=== PATIENT | male | born 1950 | race Caucasian/White ===

== ENCOUNTER 2017-06-25 19:31 | Inpatient (IN) | payer OTHER ==
[~2017-06-25] VITALS: Ht 172.7 cm; Wt 76.5 kg
[2017-06-25] MEDS ORDERED: AMAN100C12 PO (19:44)
[2017-06-25] MEDS ORDERED: GABA-531 PO ×2 (19:44)
[2017-06-25] MEDS ORDERED: SIMV-260 PO (19:44)
[2017-06-25] MEDS ORDERED: DOCU250C91 PO (19:44)
[2017-06-25] MEDS ORDERED: SENN-34 PO (19:44)
[2017-06-25] MEDS ORDERED: ACET325C PO (19:44)
[2017-06-25] MEDS ORDERED: CARB1TAB41 PO (19:44)
[2017-06-25] MEDS ORDERED: FLUO-191 PO (19:44)
[2017-06-25] MEDS ORDERED: OXYC10 PO (19:44)
[2017-06-25] MEDS ORDERED: CHOL200016 PO (19:44)
[2017-06-25] MEDS ORDERED: METF500T7 PO (19:44)
[2017-06-25] MEDS ORDERED: MULT-685 PO (19:44)
[2017-06-25] MEDS ORDERED: ACETAMINOPHEN 500 MG TABLET PO ONE (20:15)
[2017-06-25] MEDS ORDERED: SODIUM CHLORIDE 0.9% 2,000 ML IV ONE (20:15)
[2017-06-25 20:24] LABS: HEMATOCRIT 40.5 % (41-53); HEMOGLOBIN 13.8 g/dL (13.5-17.5); MEAN CORPUSCULAR HEMOGLOBIN 32.3 pg (26.0-34.0); MEAN CORPUSCULAR HGB CONC 34.1 G/dL (31.0-37.0); MEAN CORPUSCULAR VOLUME 95 fL (80-100); PLATELET COUNT (AUTO) 162 K/uL (150-450); RED BLOOD CELL COUNT(AUTO) 4.28 MIL/uL (4.50-5.90); RED CELL DISTRIBUTION WIDTH 13.7 % (11.5-14.5); WHITE BLOOD COUNT (AUTO) 20.4 K/uL (4.5-11.0)
[2017-06-25 20:35] LABS: ANION GAP 9 mmol/L (8-16); CALCIUM, TOTAL 8.7 mg/dL (8.8-10.5); CARBON DIOXIDE 26 mmol/L (22-29); CHLORIDE 100 mmol/L (98-107); CREATININE 1.22 mg/dL (0.60-1.30); GLOMERULAR FILTR. RATE CALC 59 mL/min (>60); POTASSIUM 3.9 mmol/L (3.5-5.1); SODIUM SERUM 135 mmol/L (136-145); UREA NITROGEN, BLOOD 18 mg/dL (7-18)
[2017-06-25 20:41] LABS: ALANINE AMINOTRANSFERASE 35 U/L (12-78); ALBUMIN 2.8 g/dL (3.4-5.0); ASPARTATE AMINOTRANSFERASE 19 U/L (15-37); BILIRUBIN,TOTAL 0.9 mg/dL (0.1-1.0); TOTAL PROTEIN, SERUM 5.9 g/dL (6.4-8.2)
[2017-06-25 20:52] LABS: B-TYPE NATRIURETIC PEPTIDE 6 pg/mL (0-100)
[2017-06-25 21:07] LABS: LACTIC ACID 2.1 mmol/L (0.4-2.0)
[2017-06-25 21:09] LABS: BAND NEUTROPHILS % (MANUAL) 15 % (1-5); BASOPHILS % (MANUAL) 1 % (0-2); LYMPHOCYTES % (MANUAL) 8 % (22-44); METAMYELOCYTES % 1 % (0-0); TOTAL CELLS COUNTED 100
[2017-06-25 21:10] LABS: RBC MORPHOLOGY COMMENT NORMAL RBC MORPH
[2017-06-25] MEDS ORDERED: ACETAMINOPHEN 325 MG TABLET PO PRN (21:30)
[2017-06-25] MEDS ORDERED: OxyCODONE HCL/ACETAMINOPHEN 5-325 MG TABLET PO PRN (21:30)
[2017-06-25] MEDS ORDERED: POTASSIUM CHLORIDE 20 MEQ ER TABLET PO PRN (21:45)
[2017-06-25] MEDS ORDERED: DEXTROSE 50%-WATER 25 GM/50 ML SYRINGE IVP PRN (21:45)
[2017-06-25] MEDS ORDERED: SODIUM CHLORIDE 0.9% 1,000 ML IV ONE (21:45)
[2017-06-25 21:47] LABS: PROCALCITONIN (PCT) 0.33 ng/mL (<0.50)
[2017-06-25 22:12] LABS: REFLEX LACTIC ACID? YES YES
[2017-06-25] MEDS: CIPROFLOXACIN 400 MG/D5% WATER 200 ML IV SCH (22:39)
[2017-06-25 22:55] VITALS: BP 133/66
[2017-06-25] MEDS ORDERED: MetroNIDAZOLE 500 MG/NACL 100 ML IV SCH (23:00)
[2017-06-26] MEDS: HEPARIN SODIUM,PORCINE 5,000 UNITS/ML VIAL SQ SCH ×5 (00:38→23:30)
[2017-06-26 04:13] VITALS: BP 134/70
[2017-06-26 04:29] LABS: APPEARANCE,URINE CLEAR (CLEAR); GLUCOSE, URINE (UA) 100 mg/dL (NEGATIVE); KETONES,URINE 15 mg/dL (NEGATIVE); LEUKOCYTE ESTERASE ,URINE NEGATIVE (NEGATIVE); OCCULT BLOOD,URINE NEGATIVE (NEGATIVE); PROTEIN,URINE NEGATIVE (NEGATIVE)
[2017-06-26 04:39] LABS: RBC,URINE None Seen /HPF (0-2); WBC,URINE 0-2 /HPF (0-5)
[2017-06-26] MEDS: INSULIN ASPART 100 UNITS/ML SQ PRN ×2 (06:08→20:17)
[2017-06-26 06:40] LABS: HEMATOCRIT 38.1 % (41-53); HEMOGLOBIN 12.8 g/dL (13.5-17.5); MEAN CORPUSCULAR HEMOGLOBIN 32.6 pg (26.0-34.0); MEAN CORPUSCULAR HGB CONC 33.7 G/dL (31.0-37.0); MEAN CORPUSCULAR VOLUME 97 fL (80-100); PLATELET COUNT (AUTO) 145 K/uL (150-450); RED BLOOD CELL COUNT(AUTO) 3.94 MIL/uL (4.50-5.90); RED CELL DISTRIBUTION WIDTH 13.5 % (11.5-14.5); WHITE BLOOD COUNT (AUTO) 20.2 K/uL (4.5-11.0)
[2017-06-26 07:03] LABS: CHLORIDE 103 mmol/L (98-107); POTASSIUM 3.6 mmol/L (3.5-5.1); UREA NITROGEN, BLOOD 12 mg/dL (7-18)
[2017-06-26 07:33] VITALS: BP 136/72
[2017-06-26] MEDS ORDERED: MetroNIDAZOLE 500 MG/NACL 100 ML IV SCH (08:00)
[2017-06-26] MEDS ORDERED: MetroNIDAZOLE 500 MG TABLET PO SCH (08:15)
[2017-06-26] MEDS: PANTOPRAZOLE SODIUM 40 MG DR TABLET PO SCH (08:56)
[2017-06-26] MEDS: CIPROFLOXACIN 400 MG/D5% WATER 200 ML IV SCH (09:02)
[2017-06-26 09:46] LABS: ANION GAP 14 mmol/L (8-16); CALCIUM, TOTAL 7.9 mg/dL (8.8-10.5); CARBON DIOXIDE 21 mmol/L (22-29); CREATININE 1.04 mg/dL (0.60-1.30); SODIUM SERUM 138 mmol/L (136-145)
[2017-06-26 09:48] LABS: GLOMERULAR FILTR. RATE CALC > 60 mL/min (>60)
[2017-06-26 09:57] LABS: BAND NEUTROPHILS % (MANUAL) 13 % (1-5); BASOPHILS % (MANUAL) 1 % (0-2); LYMPHOCYTES % (MANUAL) 4 % (22-44); TOTAL CELLS COUNTED 100
[2017-06-26] MEDS: CARBIDOPA/LEVODOPA 25-100 MG TABLET PO SCH ×4 (10:25→20:17)
[2017-06-26 11:16] VITALS: BP 115/61
[2017-06-26] MEDS: VANCOMYCIN HCL 250 MG/5 ML SOLUTION ORAL.SYG PO SCH ×3 (14:01→20:17)
[2017-06-26 14:55] VITALS: BP 117/62
[2017-06-26 19:56] VITALS: BP 114/65
[2017-06-26] MEDS ORDERED: SODIUM CHLORIDE 0.9% 100 ML ONE (21:25)
[2017-06-26] MEDS: POTASSIUM CHL 10 MEQ/WATER 50 ML IV PRN (21:31)
[2017-06-26 23:35] VITALS: BP 134/86
[2017-06-27] MEDS: POTASSIUM CHL 10 MEQ/WATER 50 ML IV PRN ×2 (00:44→02:49)
[2017-06-27 05:22] VITALS: BP 146/81
[2017-06-27] MEDS: INSULIN ASPART 100 UNITS/ML SQ PRN ×2 (06:23→20:48)
[2017-06-27 06:50] LABS: EOSINOPHILS % (AUTO) 0.6 % (1.0-6.0); HEMATOCRIT 37.8 % (41-53); HEMOGLOBIN 13.1 g/dL (13.5-17.5); LYMPHOCYTES # (AUTO) 1.3 K/uL (1.0-4.8); LYMPHOCYTES % (AUTO) 7.4 % (22.0-44.0); MEAN CORPUSCULAR HEMOGLOBIN 32.6 pg (26.0-34.0); MEAN CORPUSCULAR HGB CONC 34.6 G/dL (31.0-37.0); MEAN CORPUSCULAR VOLUME 94 fL (80-100); MONOCYTES % (AUTO) 5.8 % (2.0-9.0); NEUTROPHILS # (AUTO) 15.4 K/uL (1.8-7.7); PLATELET COUNT (AUTO) 155 K/uL (150-450); RED BLOOD CELL COUNT(AUTO) 4.01 MIL/uL (4.50-5.90); RED CELL DISTRIBUTION WIDTH 13.9 % (11.5-14.5); WHITE BLOOD COUNT (AUTO) 17.8 K/uL (4.5-11.0)
[2017-06-27 06:58] LABS: ANION GAP 9 mmol/L (8-16); CALCIUM, TOTAL 8.1 mg/dL (8.8-10.5); CARBON DIOXIDE 26 mmol/L (22-29); CHLORIDE 102 mmol/L (98-107); CREATININE 0.93 mg/dL (0.60-1.30); GLOMERULAR FILTR. RATE CALC > 60 mL/min (>60); POTASSIUM 3.8 mmol/L (3.5-5.1); SODIUM SERUM 137 mmol/L (136-145); UREA NITROGEN, BLOOD 7 mg/dL (7-18)
[2017-06-27 07:13] VITALS: BP 153/73
[2017-06-27 07:34] LABS: NEUTROPHILS % (AUTO) 86.2 % (40.0-70.0); RBC MORPHOLOGY COMMENT NORMAL RBC MORPH
[2017-06-27] MEDS: HEPARIN SODIUM,PORCINE 5,000 UNITS/ML VIAL SQ SCH ×2 (08:24→17:14)
[2017-06-27] MEDS: PANTOPRAZOLE SODIUM 40 MG DR TABLET PO SCH (08:24)
[2017-06-27] MEDS: LACTOBACILLUS ACIDOPHILUS/BULGARICUS GRANULES PACKET PO SCH ×3 (08:24→20:48)
[2017-06-27] MEDS: MULTIVITAMINS WITH MINERALS, THERAPEUTIC TABLET PO SCH (08:24)
[2017-06-27] MEDS: CARBIDOPA/LEVODOPA 25-100 MG TABLET PO SCH ×4 (08:24→20:48)
[2017-06-27] MEDS: VANCOMYCIN HCL 250 MG/5 ML SOLUTION ORAL.SYG PO SCH ×4 (08:24→20:48)
[2017-06-27 11:00] VITALS: BP 117/58
[2017-06-27 15:26] VITALS: BP 100/68
[2017-06-27 19:58] VITALS: BP 119/70
[2017-06-27 20:53] LABS: GLUCOSE,POINT OF CARE 137 MG/DL (70-110)
[2017-06-27 20:53] LABS: GLUCOSE,POINT OF CARE 117 MG/DL (70-110)
[2017-06-27 20:53] LABS: GLUCOSE,POINT OF CARE 138 MG/DL (70-110)
[2017-06-27 20:53] LABS: GLUCOSE,POINT OF CARE 124 MG/DL (70-110)
[2017-06-27 20:53] LABS: GLUCOSE,POINT OF CARE 115 MG/DL (70-110)
[2017-06-27 20:53] LABS: GLUCOSE,POINT OF CARE 146 MG/DL (70-110)
[2017-06-27 22:53] LABS: GLUCOSE,POINT OF CARE 119 MG/DL (70-110)
[2017-06-27 22:53] LABS: GLUCOSE,POINT OF CARE 111 MG/DL (70-110)
[2017-06-28] VITALS (7 sets, daily range): BP systolic 114–148; BP diastolic 44–80
[2017-06-28] MEDS: HEPARIN SODIUM,PORCINE 5,000 UNITS/ML VIAL SQ SCH ×3 (00:25→16:58)
[2017-06-28] MEDS: INSULIN ASPART 100 UNITS/ML SQ PRN (06:09)
[2017-06-28 06:34] LABS: BASOPHILS # (AUTO) 0.03 K/uL (0.00-0.20); BASOPHILS % (AUTO) 0.3 % (0.0-2.0); EOSINOPHILS # (AUTO) 0.15 K/uL (0.00-0.70); EOSINOPHILS % (AUTO) 1.41 % (1.0-6.0); HEMATOCRIT 43.6 % (41-53); HEMOGLOBIN 14.4 g/dL (13.5-17.5); LYMPHOCYTES # (AUTO) 1.6 K/uL (1.0-4.8); LYMPHOCYTES % (AUTO) 15.1 % (22.0-44.0); MEAN CORPUSCULAR HGB CONC 33.1 G/dL (31.0-37.0); MEAN CORPUSCULAR VOLUME 96 fL (80-100); MONOCYTES # (AUTO) 0.7 K/uL (0.1-1.0); MONOCYTES % (AUTO) 6.6 % (2.0-9.0); NEUTROPHILS % (AUTO) 76.6 % (40.0-70.0); PLATELET COUNT (AUTO) 151 K/uL (150-450); RED BLOOD CELL COUNT(AUTO) 4.52 MIL/uL (4.50-5.90); RED CELL DISTRIBUTION WIDTH 13.7 % (11.5-14.5); WHITE BLOOD COUNT (AUTO) 10.4 K/uL (4.5-11.0)
[2017-06-28 07:02] LABS: ANION GAP 9 mmol/L (8-16); CALCIUM, TOTAL 8.6 mg/dL (8.8-10.5); CARBON DIOXIDE 27 mmol/L (22-29); CHLORIDE 102 mmol/L (98-107); CREATININE 0.94 mg/dL (0.60-1.30); GLOMERULAR FILTR. RATE CALC > 60 mL/min (>60); POTASSIUM 3.6 mmol/L (3.5-5.1); SODIUM SERUM 138 mmol/L (136-145); UREA NITROGEN, BLOOD 7 mg/dL (7-18)
[2017-06-28 07:42] LABS: GLUCOSE,POINT OF CARE 97 MG/DL (70-110)
[2017-06-28] MEDS: PANTOPRAZOLE SODIUM 40 MG DR TABLET PO SCH (08:17)
[2017-06-28] MEDS: CARBIDOPA/LEVODOPA 25-100 MG TABLET PO SCH ×4 (08:17→20:38)
[2017-06-28] MEDS: LACTOBACILLUS ACIDOPHILUS/BULGARICUS GRANULES PACKET PO SCH ×3 (08:17→20:38)
[2017-06-28] MEDS: MULTIVITAMINS WITH MINERALS, THERAPEUTIC TABLET PO SCH (10:44)
[2017-06-28] MEDS: VANCOMYCIN HCL 250 MG/5 ML SOLUTION ORAL.SYG PO SCH ×4 (10:44→20:38)
[2017-06-28 19:28] LABS: GLUCOSE,POINT OF CARE 121 MG/DL (70-110)
[2017-06-28 19:28] LABS: GLUCOSE,POINT OF CARE 119 MG/DL (70-110)
[2017-06-29] MEDS: HEPARIN SODIUM,PORCINE 5,000 UNITS/ML VIAL SQ SCH ×3 (00:06→17:20)
[2017-06-29 01:53] LABS: GLUCOSE,POINT OF CARE 128 MG/DL (70-110)
[2017-06-29 03:53] VITALS: BP 139/74
[2017-06-29 05:57] LABS: GLUCOSE,POINT OF CARE 101 MG/DL (70-110)
[2017-06-29 07:35] VITALS: BP 112/48
[2017-06-29] MEDS: PANTOPRAZOLE SODIUM 40 MG DR TABLET PO SCH (08:56)
[2017-06-29] MEDS: CARBIDOPA/LEVODOPA 25-100 MG TABLET PO SCH ×4 (08:56→20:40)
[2017-06-29] MEDS: LACTOBACILLUS ACIDOPHILUS/BULGARICUS GRANULES PACKET PO SCH ×3 (08:56→20:40)
[2017-06-29] MEDS: MULTIVITAMINS WITH MINERALS, THERAPEUTIC TABLET PO SCH (08:56)
[2017-06-29] MEDS: VANCOMYCIN HCL 250 MG/5 ML SOLUTION ORAL.SYG PO SCH ×4 (09:39→20:40)
[2017-06-29 11:38] VITALS: BP 144/74
[2017-06-29] MEDS: NYSTATIN 15 GM POWDER BOTTLE TP SCH ×2 (13:33→20:40)
[2017-06-29 16:05] VITALS: BP 149/74
[2017-06-29 19:59] VITALS: BP 134/71
[2017-06-29 23:38] LABS: GLUCOSE,POINT OF CARE 103 MG/DL (70-110)
[2017-06-29 23:38] LABS: GLUCOSE,POINT OF CARE 139 MG/DL (70-110)
[2017-06-29 23:38] LABS: GLUCOSE,POINT OF CARE 131 MG/DL (70-110)
[2017-06-29 23:43] VITALS: BP 132/70
[2017-06-30] MEDS: HEPARIN SODIUM,PORCINE 5,000 UNITS/ML VIAL SQ SCH ×4 (00:23→23:29)
[2017-06-30 04:27] VITALS: BP 133/72
[2017-06-30 07:16] VITALS: BP 138/71
[2017-06-30] MEDS: LACTOBACILLUS ACIDOPHILUS/BULGARICUS GRANULES PACKET PO SCH ×3 (08:34→21:25)
[2017-06-30] MEDS: PANTOPRAZOLE SODIUM 40 MG DR TABLET PO SCH (08:34)
[2017-06-30] MEDS: MULTIVITAMINS WITH MINERALS, THERAPEUTIC TABLET PO SCH (08:35)
[2017-06-30] MEDS: CARBIDOPA/LEVODOPA 25-100 MG TABLET PO SCH ×4 (08:35→21:25)
[2017-06-30] MEDS: VANCOMYCIN HCL 250 MG/5 ML SOLUTION ORAL.SYG PO SCH ×4 (08:35→21:25)
[2017-06-30] MEDS: NYSTATIN 15 GM POWDER BOTTLE TP SCH ×2 (08:35→21:28)
[2017-06-30 10:58] VITALS: BP 131/73
[2017-06-30] MEDS ORDERED: OXYC5 PO (11:03)
[2017-06-30 11:43] LABS: GLUCOSE,POINT OF CARE 148 MG/DL (70-110)
[2017-06-30 12:11] VITALS: BP 144/84
[2017-06-30] MEDS: INSULIN ASPART 100 UNITS/ML SQ PRN ×3 (12:22→21:27)
[2017-06-30 15:30] VITALS: BP 138/74
[2017-06-30 17:17] LABS: GLUCOSE,POINT OF CARE 165 MG/DL (70-110)
[2017-06-30 19:59] VITALS: BP 139/75
[2017-06-30 21:22] LABS: GLUCOSE,POINT OF CARE 157 MG/DL (70-110)
[2017-06-30 22:13] LABS: GLUCOSE,POINT OF CARE 114 MG/DL (70-110)
[2017-07-01 00:06] VITALS: BP 130/69
[2017-07-01 04:19] VITALS: BP 142/72
[2017-07-01 06:23] LABS: GLUCOSE,POINT OF CARE 138 MG/DL (70-110)
[2017-07-01 06:31] LABS: ANION GAP 8 mmol/L (8-16); CALCIUM, TOTAL 8.9 mg/dL (8.8-10.5); CARBON DIOXIDE 28 mmol/L (22-29); CHLORIDE 101 mmol/L (98-107); CREATININE 0.87 mg/dL (0.60-1.30); GLOMERULAR FILTR. RATE CALC > 60 mL/min (>60); POTASSIUM 4.1 mmol/L (3.5-5.1); SODIUM SERUM 137 mmol/L (136-145); UREA NITROGEN, BLOOD 19 mg/dL (7-18)
[2017-07-01 07:23] LABS: BASOPHILS % (AUTO) 0.6 % (0.0-2.0); HEMATOCRIT 43.1 % (41-53); HEMOGLOBIN 14.3 g/dL (13.5-17.5); LYMPHOCYTES % (AUTO) 7.7 % (22.0-44.0); MEAN CORPUSCULAR HGB CONC 33.3 G/dL (31.0-37.0); MEAN CORPUSCULAR VOLUME 96 fL (80-100); MONOCYTES # (AUTO) 0.9 K/uL (0.1-1.0); NEUTROPHILS # (AUTO) 10.8 K/uL (1.8-7.7); NEUTROPHILS % (AUTO) 83.7 % (40.0-70.0); PLATELET COUNT (AUTO) 206 K/uL (150-450); RED BLOOD CELL COUNT(AUTO) 4.48 MIL/uL (4.50-5.90); RED CELL DISTRIBUTION WIDTH 13.5 % (11.5-14.5)
[2017-07-01 07:40] VITALS: BP 144/60
[2017-07-01] MEDS: PANTOPRAZOLE SODIUM 40 MG DR TABLET PO SCH (08:25)
[2017-07-01] MEDS: CARBIDOPA/LEVODOPA 25-100 MG TABLET PO SCH ×2 (08:25→12:26)
[2017-07-01] MEDS: HEPARIN SODIUM,PORCINE 5,000 UNITS/ML VIAL SQ SCH (08:25)
[2017-07-01] MEDS: VANCOMYCIN HCL 250 MG/5 ML SOLUTION ORAL.SYG PO SCH ×2 (08:26→12:25)
[2017-07-01] MEDS: MULTIVITAMINS WITH MINERALS, THERAPEUTIC TABLET PO SCH (08:26)
[2017-07-01] MEDS: LACTOBACILLUS ACIDOPHILUS/BULGARICUS GRANULES PACKET PO SCH (08:26)
[2017-07-01] MEDS: NYSTATIN 15 GM POWDER BOTTLE TP SCH (08:26)
[2017-07-01 11:24] VITALS: BP 138/75
[2017-07-01] MEDS: INSULIN ASPART 100 UNITS/ML SQ PRN (12:27)
[2017-07-01 12:42] LABS: GLUCOSE,POINT OF CARE 173 MG/DL (70-110)
[2017-07-01 15:17] VITALS: BP 131/67
== END 2017-07-01 16:00 | disposition home or self-care (01) | DRG 872 ==
LOC: EMS 19:33 → 5N 21:00 → 6N 21:00 → 5S 06-27 22:30 → 6N 06-30 11:40
PROVIDERS: ADMIT Internal Medicine; ATTEND Internal Medicine
DX: A41.9 Sepsis, unspecified organism (principal); A04.7 Enterocolitis due to Clostridium difficile; E44.0 Moderate protein-calorie malnutrition; E11.40 Type 2 diabetes mellitus with diabetic neuropathy, unspecified; G20 Parkinson's disease; K52.9 Noninfective gastroenteritis and colitis, unspecified; R62.7 Adult failure to thrive; R29.6 Repeated falls; F32.9 Major depressive disorder, single episode, unspecified; B35.6 Tinea cruris; E11.65 Type 2 diabetes mellitus with hyperglycemia; E78.00 Pure hypercholesterolemia, unspecified; E86.0 Dehydration; R26.2 Difficulty in walking, not elsewhere classified; Z68.25 Body mass index [BMI] 25.0-25.9, adult; Z88.0 Allergy status to penicillin
CPT/HCPCS: 70450; 82962; 83605; 84132; 84145; 87040; 87045; 87324; 87449; 93005; 96360; 96361; 97112; 97116; 97162; 97530; 99285; J0744; J1644; J3480; J3490; J7030; J7050